=== PATIENT | female | born 1995 | race Caucasian/White ===

== ENCOUNTER 2017-08-13 18:37 | Emergency (ER) | payer SELFPAY ==
[2017-08-13] MEDS ORDERED: ACETAMINOPHEN 325 MG TABLET ONE (20:41)
[2017-08-13 20:50] LABS: Absolute Lymphocytes (CBC) 3.4 K/uL (0.7-4.9); Absolute Monocytes 0.7 K/uL (0.1-1.3); Absolute Neutrophil 3.9 K/uL (1.8-8.0); Basophils % 0.8 % (0-1.3); Hematocrit 37.9 % (36.0-45.0); Lymphocytes % 41.7 % (15.3-44.8); MCH 29.4 pg (27.0-35.0); MCV 84.9 fL (80-100); MPV 9.5 fL (7.6-11.3); Monocytes % 8.4 % (3.3-12.3); RBC Red Blood Cell Count 4.46 M/uL (3.86-4.86)
[2017-08-13 21:01] LABS: Bicarbonate 23 mEq/L (21-31); Glucose Level 96 mg/dL (65-120); Potassium 3.6 mEq/L (3.6-5.0); Sodium Level 135 mEq/L (135-145)
[2017-08-13 21:02] LABS: BUN Blood Urea Nitrogen 11 mg/dL (6-20)
[2017-08-13 21:28] LABS: Urine Blood TRACE (NEG); Urine Glucose NEGATIVE (NEG); Urine Specific Gravity >1.030 (1.005-1.030)
[2017-08-13 21:29] LABS: Urine Protein TRACE (NEG); Urine pH 6.5 (5.0-7.0)
--- NOTE | 2017-08-13 22:44 | ER ---
Nurse's Notes [facility] Name: Temitope Walter Age: 22 yrs Sex: Female : 1995 Arrival Date: 08/13/2017 Time: 18:38 Bed 5 Private MD: Diagnosis: related conditions, unspecified, first trimester;Lower abdominal pain, unspecified Presentation: 08/13 18:46 Presenting complaint: Patient states: Lower abdominal cramping for 1.5 weeks. Positive home test today. Reports spotting 1 week ago. Transition of care: patient was not received from another setting of care. Onset of symptoms was August 13, 2017. Care prior to arrival: None. 18:46 Method Of Arrival: Ambulatory aj 18:46 Acuity: CONY 3 aj Triage Assessment: 18:47 General: Appears in no apparent distress. comfortable, Behavior is calm, cooperative, aj appropriate for age. Pain: Complains of pain in pelvis. Neuro: Level of Consciousness is awake, alert, obeys commands, Oriented to person, place, time, situation. Respiratory: Airway is patent Respiratory effort is even, unlabored, Respiratory pattern is regular, symmetrical. GI:. : Reports cramping. Derm: Skin is intact, is healthy with good turgor, Skin is pink, warm \T\ dry. normal. 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 - Social history:: Smoking status: Patient uses tobacco products, smokes one pack cigarettes per day. Screenin:13 Abuse screen: Denies threats or abuse. Nutritional screening: No deficits noted. tl2 Tuberculosis screening: No symptoms or risk factors identified. Fall Risk None identified. Assessment: 20:13 General: Appears in no apparent distress. uncomfortable, Behavior is calm, cooperative, tl2 appropriate for age. Pain: Complains of pain in pelvis. Neuro: Level of Consciousness is awake, alert, obeys commands, Oriented to person, place, time, situation. Cardiovascular: Denies chest pain. Respiratory: Airway is patent Respiratory effort is even, unlabored, Respiratory pattern is regular, symmetrical. GI: Bowel sounds present X 4 quads. Abd is soft and non tender Reports cramping. : Reports vaginal bleeding that is spotty. Derm: Skin is pink, warm \T\ dry. 21:25 Reassessment: Pt requested that IV be pulled out. PA notified and approved removal. tl2 22:37 Reassessment: Patient appears in no apparent distress at this time. Patient and/or tl2 family updated on plan of care and expected duration. Pain level reassessed. Patient is alert, oriented x 3, equal unlabored respirations, skin warm/dry/pink. Awaiting US results. 23:02 Reassessment: Patient appears in no apparent distress at this time. Patient and/or tl2 family updated on plan of care and expected duration. Pain level reassessed. Patient is alert, oriented x 3, equal unlabored respirations, skin warm/dry/pink. Pt verbalized understanding of discharge instructions, need for follow up and prescription usage. Vital Signs: 18:47 BP 110 / 79; Pulse 98; Resp 18; Temp 98.2; Pulse Ox 100% on R/A; Weight 68.04 kg; aj Height 5 ft. 1 in. (154.94 cm); 23:02 BP 103 / 52; Pulse 85; Resp 18; Pulse Ox 97% on R/A; tl2 18:47 Body Mass Index 28.34 (68.04 kg, 154.94 cm) ED Course: 18:38 Patient arrived in ED. as 18:47 Triage completed. aj 18:47 Arm band placed on right wrist. Patient placed in waiting room, Patient notified of aj wait time. 19:49 Bradly Marr PA is PHCP. cp 19:49 Bradly Santos MD is Attending Physician. cp 20:12 Kim Sanches, ELEUTERIO is Primary Nurse. tl2 20:13 Patient has correct armband on for positive identification. Bed in low position. Call tl2 light in reach. Side rails up X 1. 20:34 Inserted saline lock: 20 gauge in right antecubital area, using aseptic technique. tl2 Blood collected. 21:25 IV discontinued, intact, bleeding controlled, No redness/swelling at site. Pressure tl2 dressing applied. 21:46 Ultrasound completed. Patient tolerated well. cy 21:50 US Transvaginal Ob In Process Unspecified. EDMS 23:02 No provider procedures requiring assistance completed. tl2 Administered Medications: 20:40 Drug: Tylenol 650 mg Route: PO; tl2 23:04 Follow up: Response: No adverse reaction; Pain is decreased tl2 Outcome: 21:25 Discharged to home ambulatory, with family. tl2 21:25 Condition: stable 21:25 Discharge instructions given to patient, Instructed on discharge instructions, follow up and referral plans. medication usage, Demonstrated understanding of instructions, follow-up care, medications, Prescriptions given X 2. 22:44 Discharge ordered by . dot 23:04 Patient left the ED. tl2 Signatures: Dispatcher [employer] Yamilet Quiñones, RN RN Manisha Rodney Corey, PA PA Kim Aburto RN RN tl2 Genevieve Padilla
--- NOTE | 2017-08-13 22:44 | EDPHYS ---
Physician Documentation [facility] Name: Temitope Walter Age: 22 yrs Sex: Female : 1995 Arrival Date: 08/13/2017 Time: 18:38 Bed 5 Private MD: Bradly Quiroga HPI: 08/13 20:18 This 22 yrs old Female presents to ER via Ambulatory with complaints of cp Abdominal Pain - +urine preg. 20:18 The patient presents with abdominal pain in the lower abdomen. Onset: The cp symptoms/episode began/occurred 1 week(s) ago. 20:18 Associated signs and symptoms: Pertinent positives: vaginal discharge, Pertinent cp negatives: fever. 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 - Social history:: Smoking status: Patient uses tobacco products, smokes one pack cigarettes per day. ROS: 20:25 Constitutional: Negative for body aches, chills, fever, poor PO intake. cp 20:25 Eyes: Negative for injury, pain, redness, and discharge. cp Exam: 20:30 Constitutional: The patient appears in no acute distress, alert, awake, non-toxic, well cp developed, well nourished. 20:30 Head/Face: Normocephalic, atraumatic. cp 20:30 Eyes: Periorbital structures: appear normal, Conjunctiva: normal, no exudate, no injection, Sclera: no appreciated abnormality, Lids and lashes: appear normal, bilaterally. 20:30 ENT: External ear(s): are unremarkable, Nose: is normal, Mouth: Lips: moist, Oral mucosa: moist, Posterior pharynx: is normal, airway is patent, no erythema, no exudate, Voice: is normal. 20:30 Neck: ROM/movement: is normal, is supple, without pain, no range of motions limitations, no nuchal rigidity. 20:30 Chest/axilla: Inspection: normal, Palpation: is normal, no crepitus, no tenderness. 20:30 Cardiovascular: Rate: normal, Rhythm: regular. 20:30 Respiratory: the patient does not display signs of respiratory distress, Respirations: normal, no use of accessory muscles, no retractions, no splinting, no tachypnea, labored breathing, is not present, Breath sounds: are clear throughout, no decreased breath sounds, no stridor, no wheezing. 20:30 Abdomen/GI: Inspection: abdomen appears normal, Bowel sounds: active, all quadrants, Palpation: soft, in all quadrants, mild abdominal tenderness, in the right lower quadrant, rebound tenderness, is not appreciated, voluntary guarding, is not appreciated, involuntary guarding, is not appreciated. 20:30 Back: ROM is normal, CVA tenderness, is absent. 20:30 Skin: cellulitis, is not appreciated, no rash present. 22:42 : Pelvic Exam: The exam is refused by the patient/guardian. The risks and cp consequences are understood by the patient, Sexual behavior: the patient is sexually active, and reports a single partner, method of control is none. Vital Signs: 18:47 BP 110 / 79; Pulse 98; Resp 18; Temp 98.2; Pulse Ox 100% on R/A; Weight 68.04 kg; aj Height 5 ft. 1 in. (154.94 cm); 23:02 BP 103 / 52; Pulse 85; Resp 18; Pulse Ox 97% on R/A; tl2 18:47 Body Mass Index 28.34 (68.04 kg, 154.94 cm) aj MDM: 19:51 Patient medically screened. cp 21:00 Differential diagnosis: appendicitis, Ectopic , Ovarian Torsion, Pelvic cp Inflammatory Disease, Tubal Ovarian Abcess, Ureterolithiasis, urinary tract infection. 22:43 Data reviewed: vital signs, nurses notes, lab test result(s), radiologic studies, cp ultrasound. 08/13 20:18 Order name: Quantitative Hcg; Complete Time: 21:48 08/13 20:18 Order name: Abo/rh Typing; Complete Time: 22:20 cp 08/13 22:21 Interpretation: Reviewed. 08/13 20:18 Order name: Basic Metabolic Panel; Complete Time: 21:48 08/13 20:18 Order name: CBC with Diff; Complete Time: 21:00 08/13 21:01 Interpretation: Reviewed. 08/13 20:38 Order name: Urine Dipstick--Ancillary (enter results); Complete Time: 21:48 em1 08/13 20:38 Order name: Urine --Ancillary (enter results); Complete Time: 21:48 em1 08/13 20:18 Order name: Urine Test (obtain specimen); Complete Time: 20:21 cp 08/13 20:18 Order name: IV Saline Lock; Complete Time: 20:34 cp 08/13 20:18 Order name: Labs collected and sent; Complete Time: 20:34 cp 08/13 21:16 Order name: US Transvaginal Ob cp 08/13 21:48 Order name: Urine Microscopic Only 08/13 20:18 Order name: NPO; Complete Time: 20:21 cp 08/13 20:18 Order name: Urine Dipstick-Ancillary (obtain specimen); Complete Time: 20:21 cp 08/13 22:25 Order name: Pelvic Exam Setup; Complete Time: 22:35 cp Administered Medications: 20:40 Drug: Tylenol 650 mg Route: PO; tl2 23:04 Follow up: Response: No adverse reaction; Pain is decreased tl2 Disposition: 08/14 07:04 Co-signature as Attending Physician, Bradly Santos MD I agree with the assessment and [facility] plan of care. Disposition: 08/13/17 22:44 Discharged to Home. Impression: related conditions, unspecified, first trimester, Lower abdominal pain, unspecified. - Condition is Stable. - Discharge Instructions: Abdominal Pain During , Medicines During . - Prescriptions for Vitamin 27- 0.8 mg Oral Tablet - take 1 tablet by ORAL route once daily; 60 tablet. Macrobid 100 mg Oral Capsule - take 1 capsule by ORAL route every 12 hours for 7 days; 14 capsule. - Medication Reconciliation Form, Thank You Letter, Antibiotic Education, Prescription Opioid Use form. - Follow up: Private Physician; When: 1 week; Reason: Recheck today's complaints. - Problem is new. - Symptoms are unchanged. - Notes: stop taking OTC hydroxycut Signatures: Dispatcher [employer] Yamilet Quiñones RN RN aj Anderson, Corey, MD MD cha Page, Corey, PA PA cp Knox, Taylor, RN RN tl2 Corrections: (The following items were deleted from the chart) 22:07 0412 20:18 Associated signs and symptoms: Pertinent positives: vaginal bleeding, cp cp
[2017-08-13 23:28] LABS: Urine Bacteria 20-50 /HPF (<20); Urine Culture Reflex Order NOT NEEDED; Urine RBC NONE SEEN /HPF (NONE SEEN)
--- NOTE | 2017-08-14 08:24 | RAD REPORT ---
EXAM DESCRIPTION: US - Transvaginal OB - 08/13/2017 9:49 pm CLINICAL HISTORY: Abdominal pain, pelvic pain Preliminary findings were provided at the time of the study. COMPARISON: None. FINDINGS: Within the fundal portion of the endometrial cavity there is an oval fluid collection. A y olk sac is identifiable. No confirmed pole. Average sac diameter would correspond to a 5 week 3 day age. Within the uterus there is no hemorrhage, mass or other worrisome finding. A 17 millimeter anechoic left ovarian cyst is present. No suspicious adnexal or cul-de-sac finding. IMPRESSION: A 5 week 3 day sized intrauterine gestational sac is identified. No pole identified. This is very likely due to the early age. Follow-up sonography can be perfo rmed as warranted. No worrisome or suspicious adnexal process.
== END 2017-08-13 23:04 | disposition home or self-care (01) ==
LOC: ER 18:37
DX: R10.30 Lower abdominal pain, unspecified (principal); O99.331 Smoking (tobacco) complicating pregnancy, first trimester; F17.210 Nicotine dependence, cigarettes, uncomplicated; Z3A.01 Less than 8 weeks gestation of pregnancy
CPT/HCPCS: 36415; 76817; 80048; 81003; 81015; 81025; 84702; 85025; 86900; 86901; 87086; 87088; 99284

== ENCOUNTER 2017-08-24 14:30 | Emergency (ER) | payer SELFPAY ==
--- NOTE | 2017-08-24 15:49 | ER ---
Nurse's Notes [facility] Name: Temitope Walter Age: 22 yrs Sex: Female : 1995 Arrival Date: 08/24/2017 Time: 14:33 Bed Waiting Private MD: None, None Diagnosis: Presentation: 08/24 14:47 Presenting complaint: Patient states: came to ER 2 weeks ago, and is still having pain iw in lower abd and vomiting and headaches, is currently 6 weeks , has had intermittent spotting. Transition of care: patient was not received from another setting of care. Onset of symptoms was August 2017. Initial Sepsis Screen: Does the patient meet any 2 criteria? No. Patient's initial sepsis screen is negative. Does the patient have a suspected source of infection? No. Patient's initial sepsis screen is negative. Care prior to arrival: None. 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 - Social history:: Smoking status: Patient uses tobacco products, smokes one pack cigarettes per day. stopped after . Assessment: 16:00 Reassessment: pt not in lobby at this time. iw Vital Signs: 14:49 BP 128 / 74; Pulse 98; Resp 16 S; Temp 97.4(TE); Pulse Ox 98% on R/A; Weight 68.04 kg; iw Height 5 ft. 1 in. (154.94 cm); Pain 5/10; 14:49 Body Mass Index 28.34 (68.04 kg, 154.94 cm) iw ED Course: 14:33 Patient arrived in ED. mr 14:34 None, None is Private Physician. mr 14:49 Triage completed. iw 14:49 Arm band placed on. iw 16:20 Patient's name was called from ER lobby. No response. dm5 16:24 Rebecca Doll, RN is Primary Nurse. iw Administered Medications: No medications were administered Outcome: 15:49 Patient left the ED. pt 16:24 Patient left the ED. iw 16:24 Eloped from waiting room, before seeing physician Time discovered patient gone: August at 16:24 Signatures: Alyx Floers RN RN dm5 Rosa Moore RN RN pt Rubia Giles Irene, RN RN iw
== END 2017-08-24 16:24 | disposition left against medical advice (07) ==
LOC: ER 14:30
DX: Z02.9 Encounter for administrative examinations, unspecified (principal)
CPT/HCPCS: 99281

== ENCOUNTER 2017-08-24 22:27 | Emergency (ER) | payer SELFPAY ==
[2017-08-24 23:50] LABS: Absolute Lymphocytes (CBC) 3.5 K/uL (0.7-4.9); Absolute Monocytes 0.8 K/uL (0.1-1.3); Absolute Neutrophil 6.7 K/uL (1.8-8.0); Basophils % 0.6 % (0-1.3); Eosinophils % 1.4 % (0-4.4); Lymphocytes % 31.3 % (15.3-44.8); MCH 29.8 pg (27.0-35.0); MPV 9.4 fL (7.6-11.3); RBC Red Blood Cell Count 4.42 M/uL (3.86-4.86)
[2017-08-24 23:58] LABS: Bicarbonate 26 mEq/L (21-31); Glucose Level 110 mg/dL (65-120); Potassium 3.3 mEq/L (3.6-5.0); Sodium Level 136 mEq/L (135-145)
[2017-08-24 23:59] LABS: BUN Blood Urea Nitrogen 11 mg/dL (6-20)
[2017-08-25] MEDS ORDERED: POTASSIUM CL SA 10 MEQ TAB PO ONE (00:37)
--- NOTE | 2017-08-25 00:39 | ER ---
Nurse's Notes [facility] Name: Temitope Walter Age: 22 yrs Sex: Female : 1995 Arrival Date: 08/24/2017 Time: 22:28 Bed 30 Private MD: Diagnosis: Less than 8 weeks gestation of Presentation: 08/24 22:43 Presenting complaint: Patient states: she is approx 6 weeks and has been aa1 having lower abd pain and spotting. Reports she was seen here last week for same symptoms but does not have an OB since she does not have insurance. Transition of care: patient was not received from another setting of care. Onset of symptoms was August 19, 2017. Initial Sepsis Screen: Does the patient meet any 2 criteria? No. Patient's initial sepsis screen is negative. Does the patient have a suspected source of infection? No. Patient's initial sepsis screen is negative. Care prior to arrival: None. 22:43 Method Of Arrival: Ambulatory aa1 22:43 Acuity: CONY 3 aa1 Triage Assessment: 22:45 General: Appears in no apparent distress. comfortable, Behavior is calm, cooperative, aa1 appropriate for age. 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 - Social history:: Smoking status: Patient/guardian denies using tobacco. Screenin:10 Abuse screen: Denies threats or abuse. Nutritional screening: No deficits noted. tl3 Tuberculosis screening: No symptoms or risk factors identified. Fall Risk None identified. Assessment: 22:59 General: Appears comfortable, well groomed, well developed, well nourished, Behavior is tl3 calm, cooperative, appropriate for age. Pain: Complains of pain in epigastric area and suprapubic area. Neuro: Level of Consciousness is awake, alert, obeys commands, Oriented to person, place, time, situation, Appropriate for age. Cardiovascular: Heart tones S1 S2 present Capillary refill < 3 seconds in bilateral fingers. Respiratory: Airway is patent Trachea midline Respiratory effort is even, unlabored, Respiratory pattern is regular, symmetrical, Breath sounds are clear bilaterally. GI: Bowel sounds present X 4 quads. Abd is soft and non tender X 4 quads. : No signs and/or symptoms were reported regarding the genitourinary system. EENT: No signs and/or symptoms were reported regarding the EENT system. Derm: No signs and/or symptoms reported regarding the dermatologic system. Musculoskeletal: No signs and/or symptoms reported regarding the musculoskeletal system. 23:36 Reassessment: 23g butterfly to [facility] for blood draw. tl3 08/25 00:06 Reassessment: Patient appears in no apparent distress at this time. No changes from tl3 previously documented assessment. Patient and/or family updated on plan of care and expected duration. Pain level reassessed. Patient is alert, oriented x 3, equal unlabored respirations, skin warm/dry/pink. awaiting lab results. 00:38 Reassessment: Patient appears in no apparent distress at this time. No changes from tl3 previously documented assessment. Patient and/or family updated on plan of care and expected duration. Pain level reassessed. Patient is alert, oriented x 3, equal unlabored respirations, skin warm/dry/pink. Nanci at bedside discussing POC with pt. Vital Signs: 08/24 22:45 BP 111 / 64; Pulse 81; Resp 16; Temp 98.1; Pulse Ox 100% ; Weight 68.04 kg; Height 5 aa1 ft. 1 in. (154.94 cm); Pain 7/10; 08/25 00:38 BP 97 / 59; Pulse 80; Resp 18; Pulse Ox 100% ; tl3 08/24 22:45 Body Mass Index 28.34 (68.04 kg, 154.94 cm) aa1 ED Course: 08/24 22:28 Patient arrived in ED. ds1 22:37 Ariadna Ohara FNP-C is PHCP. kb 22:37 Flako Aggarwal MD is Attending Physician. kb 22:44 Triage completed. aa1 22:45 Arm band placed on left wrist. Patient placed in an exam room, on a stretcher, Patient aa1 notified of wait time. 22:55 Mariah Chilel, RN is Primary Nurse. tl3 23:10 Patient taken to ultrasound. via wheelchair. tl3 23:10 Patient has correct armband on for positive identification. Bed in low position. Call tl3 light in reach. 23:10 No provider procedures requiring assistance completed. tl3 23:14 Ultrasound completed. Patient tolerated well. Patient moved back from ultrasound. lc3 23:18 US Transvaginal Ob In Process Unspecified. EDMS 23:36 Initial lab(s) drawn, by me, sent to lab. tl3 08/25 00:03 Urine collected: clean catch specimen, clear. tl3 00:50 Patient did not have IV access during this emergency room visit. tl3 Administered Medications: 00:38 Drug: Potassium Chloride 20 mEq Route: PO; tl3 00:51 Follow up: Response: No adverse reaction; Medication administered at discharge. tl3 Outcome: 00:38 Discharge ordered by . kb 00:49 Discharged to home ambulatory. tl3 00:49 Condition: stable 00:49 Discharge instructions given to patient, Instructed on discharge instructions, follow up and referral plans. Demonstrated understanding of instructions, follow-up care, stressed the need for OB appt MARIA M 00:51 Patient left the ED. tl3 Signatures: Dispatcher [employer] EDMS Ariadna Ohara, MULESER-C MULESER-Shazia Prajapati, RN RN aa1 Elle Randhawa ds1 [place] [facility] Mariah Chilel, RN RN tl3
--- NOTE | 2017-08-25 00:40 | EDPHYS ---
Physician Documentation [facility] Name: Temitope Walter Age: 22 yrs Sex: Female : 1995 Arrival Date: 08/24/2017 Time: 22:28 Bed 30 Private MD: ED Physician Flako Aggarwal HPI: 08/24 23:43 This 22 yrs old Female presents to ER via Ambulatory with complaints of kb Abdominal Pain, Vaginal Spotting- 6 Weeks Preg. 23:43 The patient presents to the emergency department with abdominal pain, of the right kb lower quadrant and left lower quadrant, that started two weeks ago, described as crampy, vaginal bleeding, described as spotting. The estimated gestational age is 6 weeks. course: care: none, Leakage of Fluid: none appreciated, Ultrasound: the patient had an ultrasound, Risk/complications: no obvious risks or complications are appreciated. Previous pregnancies: in previous pregnancies patient has had. Associated signs and symptoms: Pertinent positives: abdominal pain, vaginal bleeding. The patient has not experienced similar symptoms in the past. The patient has been recently seen at the [facility] Emergency Department, last week, for similar complaints. Pt reports intermittent abdominal cramping and vaginal spotting. Has been seen here with confirmed IUP. Has not followed up with OB. [place] PILOT: 22:45 2, Full Term 1, Premature 0, 0, Living 1, LMP 07/06/2017 aa1 23:43 2, 0, Living 1, LMP 07/2017 kb Historical: - Allergies: 22:45 NKA; aa1 - Home Meds: 22:45 None [Active]; aa1 - PMHx: 22:45 None; aa1 - PSHx: 22:45 ; aa1 - Immunization history:: Flu vaccine is not up to date. - Social history:: Smoking status: Patient/guardian denies using tobacco. ROS: 23:32 Constitutional: Negative for fever, chills, and weight loss, Cardiovascular: Negative kb for chest pain, palpitations, and edema, Respiratory: Negative for shortness of breath, cough, wheezing, and pleuritic chest pain, Back: Negative for injury and pain, MS/Extremity: Negative for injury and deformity, Skin: Negative for injury, rash, and discoloration, Neuro: Negative for headache, weakness, numbness, tingling, and seizure. 23:32 Abdomen/GI: Positive for abdominal pain. 23:32 : Positive for vaginal bleeding. Exam: 23:32 Constitutional: This is a well developed, well nourished patient who is awake, alert, kb and in no acute distress. Head/Face: Normocephalic, atraumatic. Chest/axilla: Normal chest wall appearance and motion. Nontender with no deformity. No lesions are appreciated. Cardiovascular: Regular rate and rhythm with a normal S1 and S2. No gallops, murmurs, or rubs. Normal PMI, no JVD. No pulse deficits. Respiratory: Lungs have equal breath sounds bilaterally, clear to auscultation and percussion. No rales, rhonchi or wheezes noted. No increased work of breathing, no retractions or nasal flaring. Abdomen/GI: Soft, non-tender, with normal bowel sounds. No distension or tympany. No guarding or rebound. No evidence of tenderness throughout. Back: No spinal tenderness. No costovertebral tenderness. Full range of motion. Skin: Warm, dry with normal turgor. Normal color with no rashes, no lesions, and no evidence of cellulitis. MS/ Extremity: Pulses equal, no cyanosis. Neurovascular intact. Full, normal range of motion. Neuro: Awake and alert, GCS 15, oriented to person, place, time, and situation. Cranial nerves II-XII grossly intact. Motor strength 5/5 in all extremities. Sensory grossly intact. Cerebellar exam normal. Normal gait. Vital Signs: 22:45 BP 111 / 64; Pulse 81; Resp 16; Temp 98.1; Pulse Ox 100% ; Weight 68.04 kg; Height 5 aa1 ft. 1 in. (154.94 cm); Pain 7/10; 08/25 00:38 BP 97 / 59; Pulse 80; Resp 18; Pulse Ox 100% ; tl3 08/24 22:45 Body Mass Index 28.34 (68.04 kg, 154.94 cm) aa1 MDM: 08/24 22:46 Patient medically screened. kb 23:42 Data reviewed: vital signs, nurses notes. Data interpreted: Pulse oximetry: on room air kb is 100 %. Interpretation: normal. Counseling: I had a detailed discussion with the patient and/or guardian regarding: the historical points, exam findings, and any diagnostic results supporting the discharge/admit diagnosis, lab results, radiology results, the need for outpatient follow up, an OB/Gyne specialist, to return to the emergency department if symptoms worsen or persist or if there are any questions or concerns that arise at home. 08/24 22:48 Order name: Quantitative Hcg; Complete Time: 00:36 kb 08/24 22:48 Order name: Basic Metabolic Panel; Complete Time: 00:36 kb 08/24 22:48 Order name: US Transvaginal Ob kb 08/24 22:48 Order name: CBC with Diff; Complete Time: 23:57 kb 08/25 00:05 Order name: Urine Dipstick--Ancillary (enter results) rg2 08/25 00:05 Order name: Urine --Ancillary (enter results) rg2 08/24 22:48 Order name: Urine Test (obtain specimen); Complete Time: 23:56 kb 08/24 22:48 Order name: Labs collected and sent; Complete Time: 23:55 kb 08/24 22:48 Order name: NPO; Complete Time: 23:55 kb 08/24 22:48 Order name: Urine Dipstick-Ancillary (obtain specimen); Complete Time: 23:56 kb Administered Medications: 08/25 00:38 Drug: Potassium Chloride 20 mEq Route: PO; tl3 00:51 Follow up: Response: No adverse reaction; Medication administered at discharge. tl3 Disposition: 00:55 Co-signature as Attending Physician, Flako Aggarwal MD I agree with the assessment and kdr plan of care. Disposition: 08/25/17 00:38 Discharged to Home. Impression: Less than 8 weeks gestation of . - Condition is Stable. - Discharge Instructions: First Trimester of , [place]. - Work release form, Medication Reconciliation Form, Thank You Letter, Antibiotic Education, Prescription Opioid Use form. - Follow up: Emergency Department; When: As needed; Reason: Worsening of condition. Follow up: Private Physician; When: 2 - 3 days; Reason: Recheck today's complaints, Continuance of care, Re-evaluation by your physician. Signatures: Dispatcher [employer] Ariadna Velasquez, FRED-C FRED-Shazia Prajapati RN RN aa1 Flako Aggarwal MD MD kdr Mariah Chilel, RN RN tl3
[2017-08-25 00:44] LABS: Urine Blood NEGATIVE (NEG); Urine Glucose NEGATIVE (NEG); Urine Protein NEGATIVE (NEG); Urine Specific Gravity 1.025 (1.005-1.030)
--- NOTE | 2017-08-25 06:55 | RAD REPORT ---
EXAM DESCRIPTION: US - Transvaginal OB - 08/25/2017 4:41 am CLINICAL HISTORY: , abdominal and pelvic pain and cramping. A preliminary report was provided at the time of the study. COMPARISON: August 13 FINDINGS: Intrauterine gestational sac is again identified. Yolk sac is present and pole now v isible. Cardiac activity is seen at 123 BPM. Very small 8 mm and 5 mm subchorionic hemorrhage are pre sent not regarded as significant at small size. [place]-rump length measurement corresponds to a 6 week 4 day age. Uterine size is normal with no myometrial mass. No fluid or blood in the cul-de-sac. No suspicious adnexal finding. Left ovary contains a 2.[address] cyst with minimal internal echogenicity. No right ovarian or right adnexal significant finding. IMPRESSION: Single 6 week 4 day IUP. Minimal 8 mm and 5 mm subchorionic hemorrhages are present not significant at this small size. No suspicious ovarian or adnexal finding.
== END 2017-08-25 00:51 | disposition home or self-care (01) ==
LOC: ER 22:27
DX: O26.851 Spotting complicating pregnancy, first trimester (principal); Z3A.01 Less than 8 weeks gestation of pregnancy
CPT/HCPCS: 36415; 76817; 80048; 81003; 81025; 84702; 85025; 99284

== ENCOUNTER 2018-04-07 14:14 | Inpatient (IN) | payer OTHER ==
[2018-04-07] MEDS ORDERED: CARBOPROST TROME 250 MCG/ML IM PRN (14:53)
[2018-04-07] MEDS ORDERED: METHYLERGONOVINE 0.2MG/ML AMP IM PRN (14:53)
[2018-04-07] MEDS ORDERED: Ringers Lactate 1,000 ML IV PRN (14:53)
[2018-04-07] MEDS ORDERED: Ringers Lactate 1,000 ML IV SCH (15:00)
[2018-04-07] MEDS ORDERED: CEFAZOLIN 2GM (PREMIX IV) 2 GM/50 ML BAG IVPB SCH (15:00)
[2018-04-07] MEDS ORDERED: OXYTOCIN/LR 20 UNIT/1,000 ML BAG IV SCH ×2 (15:00→17:00)
[2018-04-07 15:16] LABS: RPR Titer ND
[2018-04-07] MEDS ORDERED: PENICILLIN G POT 5 MU/100 ML BAG IV ONE (15:23)
[2018-04-07] MEDS ORDERED: BUTORPHANOL 1 MG/ML INJ ONE (15:29)
[2018-04-07] MEDS ORDERED: LIDOCAINE 1% MPF 30 ML VIAL ONE (15:30)
[2018-04-07 15:36] LABS: Absolute Lymphocytes (CBC) 1.9 K/uL (0.7-4.9); Absolute Monocytes 0.8 K/uL (0.1-1.3); Absolute Neutrophil 12.1 K/uL (1.8-8.0); Basophils % 0.2 % (0-1.3); Eosinophils % 0.4 % (0-4.4); Hematocrit 37.3 % (36.0-45.0); Lymphocytes % 12.9 % (15.3-44.8); MCH 26.3 pg (27.0-35.0); MCV 80.2 fL (80-100); MPV 9.8 fL (7.6-11.3); Monocytes % 5.3 % (3.3-12.3); RBC Red Blood Cell Count 4.66 M/uL (3.86-4.86)
[2018-04-07] MEDS ORDERED: Oxycodone HCl/Acetaminophen 1 TAB TAB PO PRN (16:12)
[2018-04-07] MEDS ORDERED: DOCUSATE NA/SENNA CONC 1 TAB PO PRN (16:12)
[2018-04-07] MEDS ORDERED: BISACODYL 10 MG RECTAL SUPP RECT PRN (16:12)
[2018-04-07] MEDS ORDERED: DIPHENHYDRAMINE 25 MG TAB/CAP PO PRN (16:12)
[2018-04-07] MEDS ORDERED: ACETAMINOPHEN 500 MG TAB PO PRN (16:12)
[2018-04-07 16:44] VITALS: BMI 32.0
[2018-04-07] MEDS: IBUPROFEN 200 MG TAB PO PRN ×2 (17:24→23:58)
[2018-04-07] MEDS ORDERED: INFLUENZA VACCINE (for 3y+) 0.5 ML DOSE IMVAC ONE (18:00)
[2018-04-07] MEDS: Oxycodone HCl/Acetaminophen 1 TAB TAB PO PRN (20:31)
--- NOTE | 2018-04-08 02:46 | DS ---
Hospital Course: A 22-year-old, 2, para 1, sent for repeat section at [facility] tomorrow , but left the clinic this morning because she said she had to wait too long. Was in labor all day l nixon, came to our facility and noted to be 5 cm on admission, brandi every 2 minutes. Within nex t 30 minutes, was 9 cm. Moved into a room. Started on penicillin prophylaxis as we did not know bet a strep status at that time. It subsequently turns out it was negative this , positive with the last . Rupture of membranes, clear fluid. The patient went rapidly to complete. Seco nd stage of 15 minutes or less. Spontaneous vaginal delivery of an estimated 7 pound female, Apgars 9 and 9. Two small first-degree lacerations on either side of the introitus, one first-degree in the midline; all sutured with 2-0 chromic after local infiltration. Schultze delivery of the placenta, which was inspected and noted to be intact and normal. 300 cc or less blood loss. The patient was g iven 1 mg of Stadol during the labor, otherwise used Lamaze breathing techniques to best advantage. She is Rh positive, immune to Rubella. HIV and hepatitis testing negative. Quad screen during the p regnancy was negative. Final Diagnoses: Term intrauterine , 38 weeks 6 days. Vaginal after . Penic illin prophylaxis. LISA/DILIP Voice ID: [id number] Report ID: [id number]
[2018-04-08] MEDS: Oxycodone HCl/Acetaminophen 1 TAB TAB PO PRN (04:55)
[2018-04-08] MEDS ORDERED: Ringers Lactate 1,000 ML IV ONE ×2 (06:14→06:16)
[2018-04-08] MEDS: IBUPROFEN 200 MG TAB PO PRN (07:40)
[2018-04-08] MEDS ORDERED: MEASLES,MUMPS,RUBELLA VAC 0.5ML SQVAC ONE (10:42)
[2018-04-08] MEDS ORDERED: Tdap (Diph,Pertuss(Acell),Tet Vac) 0.5 ML SYR IMVAC ONE (10:44)
--- NOTE | 2018-04-08 14:01 | PREOPHP ---
Date of Admission: 04/07/2018 A 22-year-old 2, para 1, previous for complications, scheduled for tomorrow at [facility], but decided to leave the clinic. The patient started having contractions this morn ing and has been in labor all day long. She has not eaten anything since yesterday. She came into o facility and was noted to be 5 cm. Within the next 30 to 45 minutes, she is now 9 cm, 100% efface d, bulging membranes, brandi regularly. Baby looks good on the monitor. It appears at this poi nt we are headed for a . Full discussion with patient and family. She was positive for strep a year ago, but 2 weeks ago was negative. We have started her on penicillin anyway since we did not kn ow her beta strep status at the time that we made the decision. She has no pertinent family history. She has no allergies. She has had no complications during her according to the patient, but she is a very poor historian. Physical exam is normal with vital signs all normal. HEENT clear. Pupils equal, round, and reactive to light and accommodation. Conjunctivae well perfused. No oral , lingual, or buccal lesions. Chest and lungs, clear. Heart without murmurs, thrills, heaves, heave s or rubs. Breasts, not examined. The abdomen is term size and she is brandi every 2 to 2.5 mi nutes. Extremities are clear without edema, cyanosis, or clubbing. The pelvic exam as stated is 8 t o 9 cm, 100% effaced, rupture of membranes with clear fluid. Penicillin is hanging. Anticipate deli very relatively soon. We will give patient 1 mg of Stadol at her request. I doubt we have time for an epidural, but we will see what happens in the next 20 to 30 minutes. LISA/DILIP Voice ID: [id number]
[2018-04-08 17:25] VITALS: BP 142/81; TEMP 97.6
[2018-04-08 21:54] LABS: RPR (Rapid Plasma Reagin) NON-REACT (NON-REACT)
--- NOTE | 2018-04-09 06:02 | DS ---
Date of Discharge: 04/08/2018 Hospital Course: A 22-year-old 2, para 1, 38 weeks 6 days, scheduled for section at [facility], but left the clinic without being seen and went home. Said that she was in labor for several hours prior to coming to our facility. When she came in, she was brandi regularly every 2-3 min utes and noted to be 5 cm, 90-100% effaced, bulging membranes. Within next 20-30 minutes, she was 9 cm, 100% and was admitted. Rupture of membranes, clear fluid. Had Stadol 1 mg IV x1, 5 million unit s of penicillin as her beta strep status was not known at that time. It was subsequently turned out to be negative. Although, she had been positive with her first . Delivered uneventfully of an estimated 7 pounds female, Apgars 9 and 9. Three small first degree lacerations, all repaired wi th 2-0 chromic under local infiltration. Schultze delivery of the placenta, which inspected and note d to be intact and normal. Less than 300 mL blood loss. Rh positive, immune to Rubella. Tolerated all procedures well. , afebrile, ambulating and voiding. Lochia is normal. She will be d ismissed either later today or tomorrow morning to report back to my office in 6 weeks for followup, to report any temperature elevation of 100 degrees or greater, severe pain, heavy bleeding, or any ot her type of abnormalities. Dismissed with tramadol for analgesia. Although, she knows this goes thr ough the breast milk and may elect to take Motrin instead. She is offered Tdap and flu shots. Final Diagnoses: Term intrauterine at 38 weeks 6 days. Vaginal after . Pen icillin prophylaxis. Tdap and flu shots offered. LISA/DILIP Voice ID: [id number] Report ID: [id number]
--- NOTE | 2018-04-12 18:37 | OP ---
Date of Procedure: 04/08/2018 Surgeon: Amos Aguilera MD Addendum: The note dictated on 04/08, is actually the Operative Note, would you plea se change that from discharge summary to Operative Note and then you have it. LISA/DILIP Voice ID: [id number] Report ID: [id number]
[2018-04-13 03:46] LABS: HBsAG Nonreactive (Nonreactive)
== END 2018-04-08 18:15 | disposition home or self-care (01) | DRG 807 ==
LOC: L&D 14:14 → 2ND-WC 14:37
PROVIDERS: ADMIT Specialist; ATTEND Specialist
PROC: 10E0XZZ Delivery of Products of Conception, External Approach (ICD-10-PCS; principal; 2018-04-07)
PROC: 0HQ9XZZ Repair Perineum Skin, External Approach (ICD-10-PCS; 2018-04-07)
DX: O34.211 Maternal care for low transverse scar from previous cesarean delivery (principal); Z37.0 Single live birth; O70.0 First degree perineal laceration during delivery; Z3A.38 38 weeks gestation of pregnancy
CPT/HCPCS: 36415; 85025; 86592; 86762; 86850; 86900; 86901; 87340; 90707; 90715; G0433; J0595; J2210; J2590